=== PATIENT | female | born 1960 | race Caucasian/White ===

== ENCOUNTER 2019-07-17 19:55 | Emergency (ER) | payer OTHER ==
[~2019-07-17] VITALS: Ht 157.5 cm; Wt 52.2 kg
[2019-07-17] MEDS ORDERED: COZAAR50 MG PO (20:13)
[2019-07-17] MEDS ORDERED: CARAFATE1 GM (20:13)
== END 2019-07-17 21:47 ==
LOC: ER 19:55
DX: S05.02XA Injury of conjunctiva and corneal abrasion without foreign body, left eye, initial encounter (principal); X58.XXXA Exposure to other specified factors, initial encounter; Y93.89 Activity, other specified; Y92.018 Other place in single-family (private) house as the place of occurrence of the external cause; Y99.8 Other external cause status

== ENCOUNTER 2025-08-01 12:04 | Emergency (ER) | payer OTHER ==
[~2025-08-01] VITALS: Ht 157.5 cm; Wt 60.3 kg
[~2025-08-01 12:04] MED LIST: CARAFATE1 GM; COZAAR50 MG PO
== END 2025-08-01 16:01 ==
LOC: ER 12:05
DX: S09.8XXA Other specified injuries of head, initial encounter (principal); W22.8XXA Striking against or struck by other objects, initial encounter; Y93.89 Activity, other specified; Y92.89 Other specified places as the place of occurrence of the external cause; Z91.011 Allergy to milk products; I10 Essential (primary) hypertension

== ENCOUNTER 2025-09-23 10:35 | Outpatient (CLI) | payer OTHER | END 2025-09-23 10:45 | disposition home or self-care (01) | LOC: RAD 10:35 | PROVIDERS: ATTEND Acupuncturist | DX: M25.512 Pain in left shoulder (principal) ==